=== PATIENT | male | born 1990 | race Two or more races ===

== ENCOUNTER 2024-06-16 08:54 | Emergency (ER) | payer SELFPAY ==
[~2024-06-16] VITALS: Ht 172.7 cm; Wt 72.6 kg
[2024-06-16 09:01] VITALS: O2SAT 99
[2024-06-16 09:10] VITALS: BP 122/67; PULSE 85; RESP 14; TEMP 37.2; O2SAT 98
[2024-06-16] MEDS ORDERED: SULF1TAB48 MT (09:47)
[2024-06-16] MEDS ORDERED: IBUP-2030 MT (09:47)
[2024-06-16] MEDS ORDERED: CEPH500C2 MT (09:47)
== END 2024-06-16 10:08 | disposition home or self-care (01) ==
LOC: ER 08:54
DX: S70.361A Insect bite (nonvenomous), right thigh, initial encounter (principal); S00.262A Insect bite (nonvenomous) of left eyelid and periocular area, initial encounter; Z59.02 Unsheltered homelessness; W57.XXXA Bitten or stung by nonvenomous insect and other nonvenomous arthropods, initial encounter; Y93.89 Activity, other specified; Y92.89 Other specified places as the place of occurrence of the external cause; Y99.8 Other external cause status
CPT/HCPCS: 99283